=== PATIENT | female | born 2000 | race African-American/Black ===

== ENCOUNTER 2023-11-22 16:24 | Inpatient (IN) | payer OTHER ==
[2023-11-22 17:55] LABS: BASO % 0.5 % (0-2.0); EOS % 2.5 % (0-4.5); HEMATOCRIT 36.5 % (32.4-45.2); HEMOGLOBIN 12.5 GM/dL (10.7-15.3); LYMPH % 26.1 % (8-40); MCHC 34.3 g/dl (32.0-36.0); MEAN CELL VOLUME 93.3 fl (80-96); MEAN PLT VOLUME 8.4 fl (7.5-11.1); MONO % 10.9 % (3.8-10.2); PLATELET COUNT 255 10^3/uL (134-434); RBC 3.91 M/mm3 (3.60-5.2); WHITE BLOOD COUNT 6.2 K/mm3 (4.0-10.0)
[2023-11-22 18:03] LABS: INR 1.08 (0.83-1.09); PROTHROMBIN TIME (PATIENT) 12.5 SEC (9.7-13.0)
[2023-11-22 18:05] LABS: ACTIVATED PTT 27.2 SECONDS (25.2-36.5)
[2023-11-22 18:14] VITALS: BMI 33.4
[2023-11-22] MEDS: ELECTROLYTE-148 SOLN 1,000 ML IV SCH (18:21)
[2023-11-22 18:22] LABS: BLOOD UREA NITROGEN 5.6 mg/dL (7-18); CALCIUM 9.3 mg/dL (8.5-10.1)
[2023-11-22 18:26] LABS: CREATININE 0.7 mg/dL (0.55-1.3)
[2023-11-22] MEDS: DINOPROSTONE 10 MG VAGINAL SUPPOSITORY VG ONE (18:45)
[2023-11-23] MEDS ORDERED: BUTORPHANOL TARTRATE 2 MG/ML VIAL ONE (01:04)
[2023-11-23] MEDS ORDERED: PROMETHAZINE HCL 25 MG/1 ML VIAL ONE (01:04)
[2023-11-23] MEDS: BUTORPHANOL TARTRATE 2 MG/ML VIAL IVPUSH ONE (01:20)
[2023-11-23] MEDS: PROMETHAZINE HCL 25 MG/1 ML VIAL IVPB ONE (01:20)
[2023-11-23] MEDS ORDERED: FENTANYL/BUPIVACAINE/NS/PF - PCEA - 50 ML DISP.SYRIN EP ONE ×4 (05:35→16:07)
[2023-11-23] MEDS: FENTANYL/BUPIVACAINE/NS/PF - PCEA - 50 ML DISP.SYRIN EP SCH (06:25)
[2023-11-23] MEDS ORDERED: NALOXONE HCL 0.4 MG/ML VIAL IVPUSH PRN (07:08)
[2023-11-23] MEDS ORDERED: OXYTOCIN 30 UNITS in 0.9% NS 30 UNIT/500 ML INFUS.BAG IVPB ONE (11:55)
[2023-11-23] MEDS: OXYTOCIN 30 UNITS in 0.9% NS 30 UNIT/500 ML INFUS.BAG IVPB SCH (12:00)
[2023-11-23] MEDS ORDERED: ONDANSETRON 4 MG/2 ML VIAL ONE ×2 (17:22→20:05)
[2023-11-23] MEDS ORDERED: OXYTOCIN 20 UNITS in 0.9% NS 20 UNIT/1,000 ML INFUS.BAG IV ONE (17:32)
[2023-11-23] MEDS ORDERED: LIDOCAINE HCL 1% PRESERVATIVE FREE - 30ML VIAL ONE (17:32)
[2023-11-23] MEDS: CITRIC ACID/SODIUM CITRATE 30 ML UNIT-DOSE CUP PO ONE (19:45)
[2023-11-23] MEDS ORDERED: FENTANYL CITRATE/PF 50 MCG/ML VIAL ONE (19:57)
[2023-11-23] MEDS ORDERED: OXYTOCIN 10 UNITS/ML VIAL ONE ×2 (20:05→20:59)
[2023-11-23] MEDS ORDERED: DEXAMETHASONE SOD PHOSPHATE 4 MG/1 ML VIAL ONE (20:05)
[2023-11-23] MEDS ORDERED: ceFAZolin SODIUM 1 GM VIAL ONE (20:05)
[2023-11-23] MEDS: METHYLERGONOVINE MALEATE 0.2 MG/1 ML AMP IM ONE (20:13)
[2023-11-23] MEDS ORDERED: morphine SULFATE/PF 1 MG/2 ML (2cc Syringe - QUVA) ONE (20:14)
[2023-11-23 20:44] LABS: CORD BASE EXCESS -3.6 mmol/L (0-2); CORD HCO3 22.3 mmHg (20-29); CORD PCO2 43.6 mmHg (30-78); CORD pH 7.327 (7.14-7.44)
[2023-11-23 20:45] LABS: CORD HCO3 24.8 mmHg (20-29); CORD PCO2 57.8 mmHg (30-78)
[2023-11-23] MEDS ORDERED: ACETAMINOPHEN 325 MG TABLET (FP) PO PRN (21:05)
[2023-11-23] MEDS ORDERED: ONDANSETRON 4 MG/2 ML VIAL IVPUSH PRN (21:15)
[2023-11-23] MEDS: METHYLERGONOVINE MALEATE 0.2 MG/1 ML AMP IM PRN (21:20)
[2023-11-23] MEDS: OXYTOCIN 20 UNITS in 0.9% NS 20 UNIT/1,000 ML INFUS.BAG IV SCH (21:25)
[2023-11-23] MEDS ORDERED: IBUPROFEN 800 MG/8 ML IJ IVPB ONE (22:52)
[2023-11-23] MEDS: IBUPROFEN 800 MG/8 ML IJ IVPB PRN (23:00)
[2023-11-24] MEDS: CEFAZOLIN SODIUM 2 GM in DEXTROSE 5%-WATER 100 ML IVPB SCH (01:59)
[2023-11-24 08:13] LABS: HEMATOCRIT 31.6 % (32.4-45.2); HEMOGLOBIN 10.9 GM/dL (10.7-15.3); MCH 32.2 pg (25.7-33.7); MCHC 34.6 g/dl (32.0-36.0); MEAN CELL VOLUME 92.9 fl (80-96); MEAN PLT VOLUME 8.9 fl (7.5-11.1); PLATELET COUNT 221 10^3/uL (134-434); RDW 16.2 % (11.6-15.6); WHITE BLOOD COUNT 21.3 K/mm3 (4.0-10.0)
[2023-11-24 09:38] LABS: ANISOCYTOSIS 0; MACROCYTOSIS 0
[2023-11-24] MEDS: ENOXAPARIN NA (PORCINE) 40 MG/0.4 ML DISP.SYRIN SQ SCH (09:43)
[2023-11-24] MEDS: SIMETHICONE 80 MG TAB.CHEW (FP) PO PRN (09:43)
[2023-11-24] MEDS: IBUPROFEN 600 MG TABLET (FP) PO PRN (15:14)
[2023-11-24] MEDS ORDERED: BISACODYL 10 MG SUPP.RECT RC PRN (21:05)
[2023-11-25] MEDS: oxyCODONE HCL 5 MG TABLET PO PRN ×2 (03:08→16:02)
[2023-11-26 08:25] LABS: BASO % 0.3 % (0-2.0); HEMOGLOBIN 9.4 GM/dL (10.7-15.3); LYMPH % 22.1 % (8-40); MCH 31.5 pg (25.7-33.7); MCHC 33.5 g/dl (32.0-36.0); MONO % 8.5 % (3.8-10.2); NEUT % 67.1 % (42.8-82.8); PLATELET COUNT 259 10^3/uL (134-434); RBC 2.98 M/mm3 (3.60-5.2); RDW 15.9 % (11.6-15.6); WHITE BLOOD COUNT 9.5 K/mm3 (4.0-10.0)
[2023-11-26 08:46] VITALS: BP 117/69; PULSE 84; RESP 20; TEMP 98.3
== END 2023-11-26 15:00 | disposition home or self-care (01) | DRG 788 ==
LOC: JLDR 16:24 → J3W 11-23 23:30
PROVIDERS: ADMIT Obstetrics & Gynecology; ATTEND Obstetrics & Gynecology
PROC: 3E0P7VZ Introduction of Hormone into Female Reproductive, Via Natural or Artificial Opening (ICD-10-PCS; 2023-11-22)
PROC: 10D00Z1 Extraction of Products of Conception, Low, Open Approach (ICD-10-PCS; principal; 2023-11-23)
PROC: 3E033VJ Introduction of Other Hormone into Peripheral Vein, Percutaneous Approach (ICD-10-PCS; 2023-11-23)
DX: O41.03X0 Oligohydramnios, third trimester, not applicable or unspecified (principal); O76 Abnormality in fetal heart rate and rhythm complicating labor and delivery; O63.1 Prolonged second stage (of labor); O77.0 Labor and delivery complicated by meconium in amniotic fluid; O69.81X0 Labor and delivery complicated by cord around neck, without compression, not applicable or unspecified; O69.89X0 Labor and delivery complicated by other cord complications, not applicable or unspecified; Z3A.39 39 weeks gestation of pregnancy; Z37.0 Single live birth
CPT/HCPCS: 36415; 36600; 80048; 82803; 85025; 85610; 85730; 86780; 86850; 86900; 86901; 88307-TC